=== PATIENT | male | born 1995 | race Caucasian/White ===

== ENCOUNTER 2017-07-16 13:52 | Inpatient (IN) | payer BC ==
[~2017-07-16] VITALS: Ht 180.3 cm; Wt 140.3 kg
--- NOTE | 2017-07-18 10:28 | HP ---
ADMIT: 07/16/2017 RM/LOC: 527 [facility] MR#: [id number] [facility]#: [id number] [address] [address] GARDENIA MENENDEZ [address] [place] [address] History and Physical SEX: M AGE: 22 : 1995 DATE OF SERVICE: CHIEF COMPLAINT: Abdominal pain. HISTORY OF PRESENT ILLNESS: Mr. Menendez is a 22-year-old male. He has a past medical history significant for irritable bowel and history of appendectomy that presented to the ER today with complaints of increasing abdominal pain. The patient notes that he has had abdominal pain now for 3 days. Apparently, he had called into his physician who had started him on some Cipro and Bentyl and then apparently added maybe some Flagyl today. He reports that his pain had been increasing, not improving, he has not eaten anything for 2 days. He has not had a bowel movement for 2 days. Reports his temp started going up, today was 99.8 and he was nervous, so he came into the ER. In the ER, they did some labs which showed evidence of pancreatitis. They did an ultrasound which showed gallstones, but no common bile duct stone that they could see. Otherwise, he reports he is more comfortable now after getting 100 mg of fentanyl down in the ER. PAST MEDICAL HISTORY: Significant for: 1. Irritable bowel syndrome. 2. History of appendectomy. MEDICATIONS: Currently are; 1. Amitriptyline 12.5 p.o. at bedtime p.r.n. 2. He had the Cipro, Flagyl, and then Bentyl that he takes p.r.n. ALLERGIES: HE HAS NO KNOWN MEDICAL ALLERGIES. FAMILY HISTORY: Positive for mom who has diabetes and hypertension. Dad has hypertension. He had a maternal grandmother with pancreatic cancer, lung cancer, and ovarian cancer. Maternal grandfather with pancreatic cancer. SOCIAL HISTORY: He does not smoke or use any significant alcohol. REVIEW OF SYSTEMS: Obtained, was otherwise essentially negative. PHYSICAL EXAMINATION: GENERAL: He is alert and oriented. He is no apparent distress. HEENT: Pupils are equal, round, and reactive. Oropharynx; he has dry mucous membranes. NECK: Supple. HEART: Normal rate with a regular rhythm. LUNGS: Diminished bilaterally. ABDOMEN: Obese, soft. Bowel sounds are absent. He is complaining of tenderness on the mid epigastrium. ADMIT: 07/16/2017 RM/LOC: 527 [facility] MR#: [id number] [address] [address] GARDENIA MENENDEZ [address] [place] [address] History and Physical SEX: M AGE: 22 : 1995 EXTREMITIES: Have no evidence of edema. ASSESSMENT/PLAN: 1. Acute pancreatitis. At this time, we will do aggressive IV hydration. We will plan to monitor his labs. 2. Cholelithiasis concerning for gallstone pancreatitis with elevated bilirubin. We will go ahead and do the CT scan to make sure there is no evidence of gallstone pancreatitis. 3. History of irritable bowel syndrome. 4. Morbid obesity. Otherwise, we will do DVT prophylaxis and monitor the patient closely. Ruby Odonnell MD/ spencer JOB #: [id number] CC: Reji Dumas, Attending Physician Reji Dumas, Family Physician
--- NOTE | 2017-07-20 14:26 | ER ---
ADMIT: 07/16/2017 RM/LOC: 527 [facility] MR#: [id number] [address] [address] GEMMA GARDENIA [address] [place] [address] Emergency Room Report SEX: M AGE: 22 : 1995 DATE: 07/16/2017 CHIEF COMPLAINT: Abdominal pain. HISTORY OF PRESENT ILLNESS: A 22-year-old male who presents to the ER with 3 days' duration of abdominal pain. Describes the pain as primarily epigastric. This started night with sharp pain to the stomach. He did phone Dr. Dumas on Tuesday, was started on Cipro and Flagyl. States he has not improved. Complains of intermittent fevers up to 99.3, nausea, he has vomited twice. He admits to diarrhea. No blood in his stools. He has had a loss of appetite. He is primarily on a liquid diet. Denies any back pain. No problems urinating. His urine is somewhat dark. PAST MEDICAL HISTORY: For irritable bowel syndrome. PAST SURGICAL HISTORY: Includes appendectomy. ALLERGIES: NONE. COURSE IN THE EMERGENCY ROOM: The patient is seen and examined. GENERAL: Afebrile, nontoxic, in no acute distress. HEENT: Eyes are equal and reactive. Pharynx is nonerythematous. NECK: Soft, supple. No lymphadenopathy. CHEST: Clear. HEART: Regular, non tachycardic. ABDOMEN: He has some right upper quadrant tenderness and guarding. Positive Felix sign. No McBurney's point tenderness. BACK: Normal to inspection. No CVA tenderness. SKIN: Warm and dry. No diaphoresis. EXTREMITIES: Nontender. No pedal edema. NEURO: He is alert, oriented, cooperative with exam. LABORATORY STUDIES: While in the department, did get laboratory studies. White count 10.7, bands 8.8. Chemistries are remarkable for potassium 3.4, glucose 144, lipase 9003. AST 243, ALT 478. UA shows 2+ ketones, positive bilirubin. Ultrasound of the right upper quadrant reveals cholelithiasis without acute evidence of cholecystitis. There is no pericholecystic fluid. There is no common bile duct dilatation. While in department, he has received a liter of normal saline as well as Toradol and fentanyl for pain control. He is given 4 of Zofran for control of his nausea. He is feeling improved, however, continues to complain of intermittent pain. ADMIT: 07/16/2017 RM/LOC: 527 [facility] MR#: [id number] [address] [address] GARDENIA MENENDEZ [address] [place] [address] Emergency Room Report SEX: M AGE: 22 : [address] Odonnell on-call for Dr. Dumas today. I made her aware of the patient. We will admit him for further evaluation management of his pancreatitis. CLINICAL IMPRESSION: 1. Biliary pancreatitis. 2. Volume contraction. 3. History of irritable bowel. DISPOSITION: Admitted to [facility] in the care of Dr. Odonnell for Dr. Dumas. Discharged to the floor in stable condition. JERED Dover / Que Joiner MD / modl JOB #: [id number] CC: Reji Dumas MD, Attending Physician Reji Dumas MD, Family Physician
--- NOTE | 2017-07-25 09:49 | CO ---
ADMIT: 07/16/2017 RM/LOC: 527 [facility] MR#: [id number] [address] [address] GARDENIA MENENDEZ [address] [place] [address] Consultation SEX: M AGE: 22 : 1995 DATE OF CONSULTATION: 07/18/2017 ATTENDING PHYSICIAN: Reji Dumas CONSULTING PHYSICIAN: Chauncey Siu MD HISTORY OF PRESENT ILLNESS: This is a 22-year-old male seen in surgical consultation for Dr. Odonnell for an episode of gallstone pancreatitis. Gardenia describes the onset of right upper quadrant and epigastric abdominal pain on of last week. This was severe enough on Tuesday that it prompted a visit to the ER. He was found to have elevated hepatic enzymes and pancreatic enzymes and was identified on ultrasound as having gallstones. He was admitted for further management. CT scan also performed, demonstrated the pancreatitis. There was also however ductal dilatation demonstrated on CT scan of up to 12 mm of the extrahepatic biliary tree. This was not commented that I can see on the ultrasound. His labs improved yesterday; however, he had an episode of return of severe pain last night after a full liquid meal. Labs then today did increase with an elevated bilirubin as well as a persistently elevated lipase, which increased from its level yesterday of 1800 to over 3000 today again. Today, his pain is better than it was last night. He is without other complaint. Dr. Odonnell had ordered MRI and canceled that after discussion with me. PAST MEDICAL HISTORY: Obesity and irritable bowel syndrome. PRIOR SURGICAL HISTORY: Appendectomy. MEDICATIONS: Medication on admission: Amitriptyline. ALLERGIES: NO KNOWN MEDICAL ALLERGIES. FAMILY HISTORY: Significant for diabetes and hypertension. SOCIAL HISTORY: He does not smoke or drink significant alcohol. REVIEW OF SYSTEMS: Abdominal pain mentioned above. Remainder of the 10-point review of systems is negative for recent change. PHYSICAL EXAMINATION: GENERAL: Gardenia is alert, oriented, and appears in no acute distress. VITAL SIGNS: He is afebrile, and his vital signs are stable. HEENT: Sclerae appear slightly icteric. NECK: Supple without lymphadenopathy. LUNGS: Clear bilaterally. HEART: Regular rate and rhythm. NEUROLOGIC: Cranial nerves are intact. Extremities show no neurologic deficit. ABDOMEN: Tender to palpation in the epigastrium and right upper quadrant without devan peritoneal sign or mass. ADMIT: 07/16/2017 RM/LOC: 527 [facility] MR#: [id number] [address] [address] GARDENIA MENENDEZ [address] [place] [address] Consultation SEX: M AGE: 22 : 1995 EXTREMITIES: No clubbing, cyanosis, or edema. LABORATORY STUDIES: Sodium 139, potassium 3.5, chloride 104, carbon dioxide 26. BUN of 5, creatinine of 0.7. Total bilirubin of 3.9; alkaline phosphatase 147; AST 149; ALT of 298; lipase of 3604, up from 1800 yesterday. CBC yesterday showed a white blood cell count of 8.8, hemoglobin of 12.5, and platelet count of 152. IMAGING: Ultrasound and CT are both reviewed with the findings as described above. IMPRESSION: Gallstone pancreatitis with persistent and actual bump in hepatic enzymes and lipase today. PLAN: Does seem appropriate to obtain MRCP given the ductal dilatation seen on CT scan and elevation of the enzymes today to further evaluate for choledocholithiasis. If there was evidence of that, I would recommend possible transfer for ERCP and ductal clearance prior to cholecystectomy. If there is no evidence for choledocholithiasis on MRCP, we would proceed with laparoscopic cholecystectomy, the timing of which would be preferable to near normalization of the pancreatitis. I discussed that with Gardenia and his family. I discussed the risks of laparoscopic cholecystectomy including bleeding, infection, damage to surrounding structures including the biliary tree. They understand all of these and will await testing for further decisions about timing and next step of management. Chauncey Siu MD/ spencer JOB #: [id number] CC: Reji Dumas, Attending Physician Reji Dumas, Family Physician
== END 2017-07-18 18:30 | disposition short-term general hospital (02) | DRG 439 ==
LOC: ER 13:52 → 5MS 17:00
PROVIDERS: ADMIT Internal Medicine
DX: K85.10 Biliary acute pancreatitis without necrosis or infection (principal); Z68.41 Body mass index [BMI] 40.0-44.9, adult; K76.0 Fatty (change of) liver, not elsewhere classified; K58.9 Irritable bowel syndrome, unspecified; K80.20 Calculus of gallbladder without cholecystitis without obstruction; E66.01 Morbid (severe) obesity due to excess calories